=== PATIENT | male | born 1945 | race Caucasian/White ===

== ENCOUNTER 2024-03-18 15:32 | Emergency (ER) | payer MEDICARE, BC, SELFPAY ==
[2024-03-18 15:32] VITALS: BMI 36.1
--- NOTE | 2024-03-18 16:15 | ED.GENMED ---
History of Present Illness
General
Chief Complaint: CODE
Source: spouse, family and ambulance crew
Exam Limitations: clinical condition
Time Seen by Provider: 03/18/24 15:53
Nursing documentation reviewed up to this point in time: agreed with
History of Present Illness
History of Present Illness:
79-year-old male who presents to the emergency room via EMS in cardiac arrest that she currently lives at [facility] and was apparently with his and son at the time of arrest. According the patient's he was complaining of chest pain
and became very sweaty and told her 'I think I am having a heart attack.' She pulled the cord at [facility] for help and EMS came to the scene. Per EMS on their arrival patient was unresponsive and pulseless with a wide-complex regular
bradycardia�PEA. ACLS was initiated in the field and per EMS patient received 34 minutes of ACLS; he was intubated in the field, right pretibial IO placed and left antecubital peripheral IV. Patient had PEA with 5 episodes of ventricular
tachycardia and 5 total defibrillation's in the field without sustained return of pulses. He received multiple rounds of epinephrine, 450 mg total of IV amiodarone. He was transported to the emergency room for further treatment�unfortunately total
transport time was between 20 and 25 minutes for a total downtime of 45+ minutes on ER arrival.
Review of Systems
Review of Systems
Unable to obtain full review of systems at this time due to: due to acuity
All Other Systems: Not applicable
Phy Exam
Physical Exam
Physical Exam:
General: Patient is unresponsive with ACLS in progress
Head: Normocephalic, atraumatic
Eyes: Anisocoria with fixed pupils�left pupil approximately 5 mm and nonreactive, right pupil approximately 3 mm and nonreactive
Throat: Intubated with copious frothy bloody secretions through endotracheal tube
Neck: No palpable carotid pulses
Lungs: Bilateral breath sounds present
Heart: Pulseless with CPR in progress
Abd: Mildly distended
Neuro: Unresponsive
Skin: Cool and mottled
Extremities: Atraumatic, cool to the touch
Scores
Heart Failure Risk
Heart Failure Risk Score: Not Applicable
Heart Score for Chest Pain Patients
STEMI patient?: Not applicable
Withdrawal Assessment of Alcohol
Withdrawal Assessment Completed?: Not applicable
MDM/Problems Addressed
Differential Diagnosis Includes:
Acute TN, massive pulmonary embolism, sudden cardiac arrest due to dysrhythmia
MDM/Problems Addressed:
79-year-old male presents via EMS unresponsive in cardiac arrest�reportedly had severe chest pain and diaphoresis and ultimately found to be pulseless by EMS. Received ACLS in the field as described above arrives to us with a total downtime
estimated around 50 minutes; he received total of 450 mg of IV amiodarone because he did have some episodes of ventricular tachycardia/shockable rhythms in the field but has mostly been wide-complex bradycardia PEA. Also received multiple rounds of
epinephrine and was intubated in the field. On arrival patient was given 1 amp of calcium chloride, 1 amp of sodium bicarbonate, 1 mg of IV epinephrine and he received an additional 10 minutes of ACLS here, 2 additional rounds of 1 mg epinephrine.
He was persistently PEA here. Unfortunately unable to obtain return of spontaneous circulation and [id number] ultrasound shows no organized cardiac activity. Patient pronounced at 3:45 PM. I spoke with his family and they were brought to the
bedside to be with their loved one. I called the patient's primary care physician to provide update; they will certify that certificate. Spoke with ME and patient was released from biomedical technician. Nurse contacted the [facility] [employer].
*Critical Care Note
Total Time (30-74mins, 75-104mins- exclusive of procedures): 30
comment:
Critical care statement: A total of 30 minutes of critical care time was provided for this patient. This includes management of unstable vital signs, evaluation of the patient at bedside, frequent reassessment, discussion with
consultants/hospitalist, and review of pertinent medical records. This time was separate from time utilized to perform any aforementioned documented procedures
Data Reviewed
Source: family and ambulance crew
Patient Management
Discussion with other providers: PCP (Discussed with patient's primary care physician) and Copy Chief (Discussed with mining helper prior to patient arrival in case of [facility] on standby but unfortunately unable obtain pulses)
ED Attending Note
-
Portions of this chart may have been created with voice recognition software.� Occasional wrong word or��sound alike� substitutions may have occurred due to the inherent limitations of voice recognition software.
Discharge Plan
Departure
Patient Disposition:
Date of Disposition: 03/18/24
Time of Disposition: 16:14
Discharge Problem:
Cardiac arrest
Referrals:
Ivette Dumont MD [Family Provider] -
Discharge Date and Time
Print Language: GREEK
--- NOTE | 2024-03-18 18:46 | EDRN ---
Pt arrived with CPR in progress from [facility]. Pt with an episode of chest pain, witnessed cardiac arresst, CPR initiiated by family immediately. Pt has appox 50 minutes downtime in field prior to arrival to the ED where he received 5 rounds of
epi, 450 of amio, and was defibrillated 5 times. On arrival pt received multiple rounds of epi, and other medications (refer to code sheet). Care continued until time of was called at [address] Ridley. Care provided to family who came to sit
with pt. [facility] was called, see sheet. Following family's departure post mortem care was provided to pt by this RN and PCT. [place] [facility]
== END 2024-03-18 18:59 | disposition expired ==
LOC: EMR 15:32
PROVIDERS: EMERGENCY PHYSICIAN Emergency Medicine; FAMILY PHYSICIAN Internal Medicine Geriatric Medicine
DX: I46.9 Cardiac arrest, cause unspecified (principal)
CPT/HCPCS: 99291; 96374; 96375 ×2; 96376